=== PATIENT | male | born 1970 | race African-American/Black ===

== ENCOUNTER 2018-09-28 08:19 | Day surgery (SDC) | payer OTHER ==
[2018-09-28 09:00] LABS: Basophils # (Auto) 0.1 K/mm3 (0.0-0.1); Basophils % (Auto) 0.9 % (0.0-1.8); Eosinophils # (Auto) 0.3 K/mm3 (0.0-0.4); Eosinophils % (Auto) 3.1 % (0.0-4.3); Hematocrit 44.7 % (35.5-45.6); Hemoglobin 15.5 gm/dl (11.8-15.2); Lymphocytes # (Auto) 2.6 K/mm3 (1.2-5.4); Lymphocytes % (Auto) 25.7 % (13.4-35.0); Mean Corpuscular HGB Conc 35 % (32-34); Mean Corpuscular Volume 97 fl (84-94); Monocytes # (Auto) 0.7 K/mm3 (0.0-0.8); Monocytes % (Auto) 6.8 % (0.0-7.3); Platelet Count 281 K/mm3 (140-440); Red Blood Count 4.61 M/mm3 (3.65-5.03); Red Cell Distribution Width 13.7 % (13.2-15.2)
[2018-09-28] MEDS ORDERED: VERSED IV ONE (09:00)
[2018-09-28] MEDS ORDERED: SUBLIMAZE IV ONE (09:00)
[2018-09-28] MEDS ORDERED: XYLOCAINE 1% 20 mL ONE ×2 (09:16→09:32)
[2018-09-28 09:18] LABS: INR 0.9 (0.87-1.13)
[2018-09-28 09:19] LABS: Partial Thromboplastin Time 32.4 Sec. (24.2-36.6)
[2018-09-28 11:23] VITALS: BP 115/72
--- NOTE | 2018-09-28 12:40 | Cat Scan Report ---
CT guided core biopsy of a large pelvic mass Clinical history: Patient has had an outside CT. This study revealed a large pelvic mass displacing the rectum to the left of midline. I explained the procedure to the patient. The patient gave a verbal and written consent. Technique: The patient was placed in the prone position. Using 2 mg of Versed and a 50 mcg of fentanyl, the patient was treated for moderate sedation. The patient underwent the procedure and the sedation satisfactory. Initial axial images were obtained to locate the mass. A suitable site was chosen to perform the biopsy. The site was aseptically prepared. Using local limits again, a 19-gauge needle was introduced into the posterior and superior aspect of the pelvic mass. After confirming the position of the tip of the needle within the mass, 18-gauge biopsy gun was introduced into the mass and 3 core specimens were obtained. The specimens are carefully collected within the recommended container. Images of the pelvis are again performed following the removal of the needle to rule out any complication such as hematoma. Impression: Successful CT-guided pelvic mass biopsy using local density and conscious sedation. The patient color is satisfactory. Instructions are given to the postprocedure nursing staff to discharge patient in 2 hours if there is no complication.
== END 2018-09-28 11:51 | disposition home or self-care (01) ==
LOC: CATHLABREC 08:19 → EDSTATUS 08:30 → CATHLABREC 11:51
PROVIDERS: ATTEND Radiology Diagnostic Radiology
DX: R19.09 Other intra-abdominal and pelvic swelling, mass and lump (principal); F17.210 Nicotine dependence, cigarettes, uncomplicated; Z79.899 Other long term (current) drug therapy; Z98.890 Other specified postprocedural states; Z79.01 Long term (current) use of anticoagulants
CPT/HCPCS: 20206; 36415; 77012; 85025; 85610; 85730; 88305; 88341; J2250; J3010; 88307; 88342